=== PATIENT | male | born 1990 | race Caucasian/White ===

== ENCOUNTER 2017-09-30 17:23 | Inpatient (IN) | payer OTHER ==
[~2017-09-30] VITALS: Ht 185.4 cm; Wt 86.8 kg
[~2017-09-30 17:23] MED LIST: AUGMENTIN 875-1 EACH PO
[2017-09-30 17:30] VITALS: BP 127/74
[2017-09-30 18:14] LABS: ABSOLUTE BASOPHIL COUNT 0 /CUMM (0.0-0.2); ABSOLUTE EOSINOPHIL COUNT 0 /CUMM (0.0-0.7); ABSOLUTE LYMPH COUNT 0.8 /CUMM (1.2-3.4); BASOPHIL % 0.3 % (0.0-2.0); EOSINOPHIL % 0.2 % (0-5); GRANULOCYTE % 76.3 % (42.2-75.2); HEMATOCRIT 42.6 % (42-52); MEAN CORPUSCULAR HGB 32.7 PG (27.0-31.0); MEAN CORPUSCULAR HGB CONC 35.1 G/DL (33.0-37.0); MEAN CORPUSCULAR VOLUME 92.9 FL (80.0-94.0); MEAN PLATELET VOLUME 6.5 FL (7.4-10.4); PLATELET COUNT 120 /CUMM (130-400); RBC DISTRIBUTION WIDTH 13.5 % (11.5-14.5); RED BLOOD CELL CT 4.59 /CUMM (4.70-6.10); WHITE BLOOD CELL COUNT 7.8 /CUMM (4.8-10.8)
--- NOTE | 2017-09-30 18:50 | ED GENERAL ADULT ---
See Addendum History of Present Illness General Chief Complaint: Seizure Stated Complaint: BIBA FOR SEIZURE Source: patient, family Exam Limitations: no limitations Allergies Coded Allergies: NO KNOWN ALLERGIES (07/18/13) Reconcile Medications No Known Home Medications Triage Note: BIBA FROM HOME S/P SEIZURE-LIKE ACITVITY PER MOM. EMS STATES MOM HEARD LARGE SOUND IN THE KITCHEN AND SHE FOUND PATIENT LAYING ON GROUND UNRESPONSIVE AND SHAKING AND CALLED 911. PATIENT ARRIVES TO ER ALERT, ORIENTED, DENIES RECOLLECTION OF EVENT. PATIENT HAS WOUND TO RIGHT LIP AND SMALL ABRASION TO RIGHT SABIANISM. NO OTHER INJURIES NOTED. PATIENT ADMITS TO DRINKING 3 GLASSES OF WHISKEY EVERY NIGHT, LAST DRINK LAST PM, NO HX OF ALCOHOL WITHDRAWL SEIZURES. DENIES MEDICAL HX OR ILLICIT DRUG USE. DENIES PAIN AT THIS TIME. PLACED ON ASSEMBLY WORKER, VITALS OBTAINED. AWAITING PROVIDER EVAL. Triage Nurses Notes Reviewed? yes Onset: Abrupt Duration: minute(s): Timing: single episode today HPI: 27-year-old male with a history of EtOH abuse presenting s/p seizure just [employer]AM [employer]BER. Patient's mother reports that he was upstairs when she heard a loud bang, went upstairs to find him with GTC movements. Lasted ~2 mins before self resolving. + Head strike. No h/o seizures or ETOH withdrawal seizures. Reports being in his USOH, no recent fevers or illness. On average drinks 3 glasses of whiskey per night, with last drink 2 nights ago. Denies fevers, headache, visual changes, nausea, vomiting, or head trauma. (Amisha Singh) Vital Signs & Intake/Output Vital Signs & Intake/Output Vital Signs Date Time Temp Pulse Resp B/P B/P Pulse O2 O2 Flow FiO2 Mean Ox Delivery Rate 10/01 0000 98.5 71 18 155/91 09/306 98.5 71 18 155/91 98 09/30 2158 100.0 74 20 144/99 09/30 2158 100.0 74 20 144/99 96 Room Air 09/30 2028 101.4 09/30 1930 100.0 87 22 146/85 09/30 1924 100.0 87 22 146/85 96 Room Air 09/30 1730 99.8 80 18 127/74 09/30 1726 99.8 80 18 12774 94 Room Air ED Intake and Output 10/01 0000 09/30 1200 Intake Total 700 Output Total Balance 700 Intake, IV 500 Intake, Oral 200 Patient 210 lb Weight Weight Reported by Patient Measurement Method (Susie STEVENS,Sang Mata) Past History Travel History Traveled to [place] past 21 day No Medical History Any Pertinent Medical History? see below for history Neurological: NONE EENT: NONE Cardiovascular: NONE Respiratory: NONE Gastrointestinal: NONE Hepatic: NONE Renal: NONE Musculoskeletal: NONE Psychiatric: alcohol dependence Endocrine: NONE Blood Disorders: NONE Tetanus Vaccine: 11/02/16 Surgical History Surgical History: non-contributory Psychosocial History What is your primary language German Tobacco Use: Current Daily Use Daily Tobacco Use Amount/Type: => 5 Cigarettes daily ETOH Use: heavy use Illicit Drug Use: denies illicit drug use Family History Hx Contributory? No (Amisha Singh) Review of Systems Review of Systems Constitutional: Reports: no symptoms. EENTM: Reports: no symptoms. Respiratory: Reports: no symptoms. Cardiovascular: Reports: no symptoms. GI: Reports: no symptoms. Genitourinary: Reports: no symptoms. Musculoskeletal: Reports: no symptoms. Skin: Reports: no symptoms. Neurological/Psychological: Reports: see HPI. Hematologic/Endocrine: Reports: no symptoms. Immunologic/Allergic: Reports: no symptoms. (Amisha Singh) Physical Exam Physical Exam General Appearance: well developed/nourished, no apparent distress, alert, awake , comfortable Head: normal appearance, small abrasion Eyes: Bilateral: normal appearance, PERRL, EOMI. Ears, Nose, Throat: normal ENT inspection Neck: normal inspection, full range of motion, no midline tenderness Respiratory: normal breath sounds, chest non-tender, lungs clear Cardiovascular: regular rate/rhythm Gastrointestinal: soft, non-tender Back: normal inspection, normal range of motion, no vertebral tenderness Extremities: normal inspection, normal range of motion Neurologic/Psych: no motor/sensory deficits, awake, alert, oriented x 3, normal gait, normal mood/affect, value engineer II-XII nml as tested, cerebellar function intact, positive tremors, no meningeal signs Reflexes: 2+: bicep (R), bicep (L), tricep (L), tricep (L), knee (R), knee (L), ankle (R), ankle (L). Skin: intact, normal color, warm/dry Core Measures ACS in differential dx? No CVA/TIA Diagnosis: No Sepsis Present: No Sepsis Focused Exam Completed? No (Amisha Singh) Progress Differential Diagnoses I considered the following diagnoses in my evaluation of the patient: [Infection versus metabolic derangement versus toxin induced versus EtOH withdrawal] Initial ED EKG: rhythm (sinus), PVC's, T wave inversions (Amisha Singh) Plan of Care: Orders Procedure Date/time Status Clear Liquid Diet 10/01 D Active Nothing by Mouth 10/01 B Active TROPONIN LEVEL 10/01 0600 Active MAGNESIUM 10/01 0600 Active CBC WITHOUT DIFFERENTIAL 10/01 06 Active BASIC ELECTROLYTES PLUS BUN&CR 10/01 06 Active EKG 10/01 0600 Active LACTIC ACID 10/01 0101 Active Seizure Precautions 09/30 2302 Active Weight 09/30 223 Active Vital Signs 09/30 2234 Active Teach/Educate 09/30 2234 Active Pain Treatment and Response 09/30 2234 Active Nutritional Intake, Monitor 09/30 2234 Active Isolation 09/30 2234 Active Intake & Output 09/30 2234 Active Patient Care Conference 09/30 2234 Active Activity/Ambulation 09/30 223 Active LOWER RESPIRATORY CULTURE 09/30 221 Active BLOOD CULTURE 09/30 221 Active LACTIC ACID 09/30 220 Complete Add-on Test (ER Only) 10/01 2115 Active Pathway - chart 09/30 2114 Active House Staff 09/30 2114 Active Code Status 09/30 2114 Active Add-on Test (ER Only) 09/30 2108 Active Add-on Test (ER Only) 10/01 2103 Active Patient Data 09/30 2058 Active Saline Lock 09/30 2057 Active Misc Message 09/30 2057 Active ED Holding Orders 09/30 2057 Active Admit to inpatient 09/30 2057 Active Vital Signs 09/30 2057 Active Code Status 09/30 2057 Complete CIWA 09/30 1914 Active URINALYSIS 09/30 1817 Complete THYROID STIMULATING HORMONE 09/30 1750 Complete TROPONIN LEVEL 09/30 1750 Complete LACTIC ACID 09/30 1750 Complete FOLIC ACID 09/30 1750 Complete VITAMIN B12 09/30 1750 Complete EKG 09/30 1750 Active URINE DRUG SCREEN FOR ER ONLY 09/30 1739 Complete MAGNESIUM 09/30 1739 Complete LIPASE 09/30 1739 Complete ETHANOL 09/30 1739 Complete COMPREHENSIVE METABOLIC PANEL 09/30 1739 Complete CBC WITHOUT DIFFERENTIAL 09/30 173 Complete Intake & Output 09/30 1731 Active VTE Mechanical Prophylaxis 09/30 UNK Active Current Medications Sig/Ashlie Start time Last Medication Dose Stop Time Status Admin Enoxaparin Sodium 40 MG DAILY 10/01 0900 AC (Lovenox) Folic Acid 1 MG DAILY 10/01 0900 AC (Folic Acid) Multivitamins 1 TAB DAILY 10/01 09 AC (Theragran Vitamins) Thiamine HCl 50 MG DAILY 10/01 09 AC (Vitamin B1) Omeprazole 40 MG DAILY AC 10/01 0700 AC (Prilosec) Lorazepam 2 MG Q6 09/30 2359 AC 09/30 (Ativan) 2326 Cyanocobalamin/ 1 BAG ONCE ONE 09/30 2114 AC Thiamine/Pyridoxine 10/01 0514 (Vitamin in I.V.) Sodium Chloride 1,000 ML (Normal Saline 0.9%) Lorazepam 0 Q1P PRN 09/30 2114 AC (Ativan) Magnesium Sulfate 2 GM ONCE ONE 09/30 2100 AC 09/30 (Mag Sulfate in D5) 10/01 58 2328 Dextrose/Water 100 ML (D5W) Lidocaine 20 ML ONE ONE 09/30 2044 CAN (Lidocaine 2%) 09/30 2045 Lidocaine 20 ML ONCE ONE 09/30 2044 CAN (Lidocaine 1%) 09/30 2045 Laboratory Tests 09/30/17 2205: Lactic Acid 1.0 09/30/17 1929: Urine Opiates Screen < 100, Methadone Screen < 40, Barbiturate Screen < 60, Ur Phencyclidine Scrn < 6.00, Amphetamines Screen < 100, U Benzodiazepines Scrn < 85, Urine Cocaine Screen < 50, Urine Cannabis Screen < 5.00, Urinalysis LIGHT H , Urine Color YEL, Urine Clarity HAZY H, Urine pH 7.0, Ur Specific [place] 1.025, Urine Protein >=300 H, Urine Ketones 40 H, Urine Nitrite NEG, Urine Bilirubin NEG@ICTO, Urine Urobilinogen 4.0 H, Ur Leukocyte Esterase NEG, Ur Microscopic SEDIMENT EXAMINED, Urine RBC 1-3, Ur Epithelial Cells FEW, Urine Hemoglobin SMALL H, Urine Glucose NEG 09/30/17 1750: Anion Gap 24 H, Estimated GFR > 60, BUN/Creatinine Ratio 6.7 L, Glucose 149 H , Lactic Acid 9.5 H, Calcium 9.5, Magnesium 1.0 L, Total Bilirubin 1.1, AST 242 H, ALT 220 H, Alkaline Phosphatase 117, Troponin I < 0.01, Total Protein 7.2, Albumin 4.3, Globulin 2.9, Albumin/Globulin Ratio 1.5, Lipase 113, Vitamin B12 806, Folate 4.4, TSH 1.870, CBC w Diff NO MAN DIFF REQ, RBC 4.59 L, MCV 92.9, MCH 32.7 H, MCHC 35.1, RDW 13.5, MPV 6.5 L, Gran % 76.3 H, Lymphocytes % 10.3 L, Monocytes % 12.9 H, Eosinophils % 0.2, Basophils % 0.3, Absolute Granulocytes 6.0, Absolute Lymphocytes 0.8 L, Absolute Monocytes 1.0 H, Absolute Eosinophils 0, Absolute Basophils 0, Serum Alcohol 25.0 Microbiology 09/30 2214 LOWER RESP: Respiratory Culture - ORD 09/30 2214 LOWER RESP: Gram Stain - ORD 09/30 2214 BLOOD: Blood Culture - COLB 09/30 2214 BLOOD: Blood Culture - COLB Initial CIWA 16 and given 1 mg of Ativan. Repeat CIWA 9, given an additional milligram of Ativan. CT head unremarkable. Labs remarkable for hypomagnesemia and hypokalemia, both were repleted. EKG shows sinus rhythm with new T wave inversions, trop neg. Patient noted to be febrile to 101.5 rectally. No clear source for fever. Chest x-ray unremarkable. Urine not concerning for infection. No signs of skin infection on exam. We'll concerns for meningitis as patient has no headache and no meningeal signs on exam, therefore LP was deferred at this time. Will admit for inpatient ETOH detox withdrawal. Pt should have serial neuro exams with LP for any symptoms concerning for meningitis. (Amisha Singh) (Susie STEVENS,Sang Mata) Departure Departure Disposition: STILL A PATIENT Condition: Stable Clinical Impression Primary Impression: Seizure Secondary Impressions: Alcohol abuse Referrals: Steffen Amaro DO (PCP/Family) Departure Forms: Customer Survey General Discharge Information Prescriptions: Current Visit Scripts No Known Home Medications Admission Note Spoke With: MD,Sitalakshmi Documentation of Exam: Documentation of any treatments & extenuating circumstances including Concerns Regarding Discharge (functional status, medication knowledge or non-compliance, living conditions, etc.) that warrant an admission rather than observation: [IV fluids, benzodiazepine regimen, CIWA monitoring, hemodynamic monitoring, serial neurologic exams] (Amisha Singh) PA/RESEARCH LEADER Co-Sign Statement Statement: ED Attending supervision documentation- [x] I saw and evaluated the patient. I have also reviewed all the pertinent lab results and diagnostic results. I agree with the findings and the plan of care as documented in the PA's/RESEARCH LEADER's documentation. Patient presents for evaluation of a seizure, new onset, after cessation of alcohol yesterday. Physical examination reveals an alert and conversant patient in no apparent distress. No seizure activity at present. [] I have reviewed the ED Record and agree with the PA's/RESEARCH LEADER's documentation. [] Additions or exceptions (if any) to the PAs/RESEARCH LEADER's note and plan are summarized below: [] (Susie STEVENS,Sang Mata) PA/RESEARCH LEADER Co-Sign Statement Statement: ED Attending supervision documentation- [x] I saw and evaluated the patient. I have also reviewed all the pertinent lab results and diagnostic results. I agree with the findings and the plan of care as documented in the PA's/RESEARCH LEADER's documentation. 09/30/17, 20:52... pt is well appearing, no headache or meningeal signs, given his seizure in context of etoh withdrawal, and elevated ciwa scores, pt merits parenteral benzo detox. [] I have reviewed the ED Record and agree with the PA's/RESEARCH LEADER's documentation. [] Additions or exceptions (if any) to the PAs/RESEARCH LEADER's note and plan are summarized below: [] (Aleksey STEVENS,Nicholas Lee) Critical Care Note Critical Care Note Critical Care Time: non-applicable (Amisha Singh)
[2017-09-30 19:30] VITALS: BP 146/85
--- NOTE | 2017-09-30 19:35 | CT SCAN REPORT ---
EXAMINATION: CT HEAD WITHOUT CONTRAST CLINICAL INFORMATION: Seizure. COMPARISON: None TECHNIQUE: Contiguous axial imaging was performed from the skull base to vertex without intravenous administration of contrast. DLP: 612 mGy-cm FINDINGS: There is no evidence of acute intracranial hemorrhage or territorial infarction. No abnormal mass effect or midline shift is seen. Lema to white matter differentiation is well preserved. No extra-axial fluid collections are identified. The ventricles are normal in size. There is no abnormal attenuation within the brain parenchyma. The osseous structures and soft tissues are normal. The mastoid air cells are well-aerated. There is mild to moderate fluid opacification of the bilateral ethmoid air cells. IMPRESSION: 1. No acute intracranial pathology. 2. Mild to moderate bilateral ethmoid sinus disease.
--- NOTE | 2017-09-30 21:00 | RADIOLOGY REPORT ---
EXAMINATION: XR CHEST CLINICAL INFORMATION: Evaluate for infection COMPARISON: None TECHNIQUE: 2 views of the chest were obtained. FINDINGS: No significant abnormality is noted involving the heart, lungs, mediastinum, bony thorax or soft tissues. IMPRESSION: Unremarkable examination.
--- NOTE | 2017-09-30 21:05 | History & Physical ---
Mami STEVENS,Simone 09/30/17 2103: General Information and HPI MD Statement: I have seen and personally examined MERLINE WALLER and documented this H&P. The patient is a 27 year old M who presented with a patient stated chief complaint of [alcohol withdrawal seizure]. Source of Information: patient, family Exam Limitations: no limitations History of Present Illness: Patient is a 27-year-old male with a PMH significant for alcohol use disorder who was brought in to [facility] ED by ambulance after suffering a witnessed seizure. Patient reports drinking approximately 1 pint of whiskey daily for the past several years with his last drink being on 09/28/17, 2 days prior to presentation. He had a brief period of 8 days of sobriety in May of 2017 and did not experience tremors, anxiety, nausea or vomiting but did experienced night sweats during this time. Patient reports nausea and vomiting the the evening prior to presenation as well as fever, chills, and tremulousness. These symptoms persisted through the night and had a syncopal episode while walking in his home and hit his head. His mother was visiting and heard the patient fall, she stated that she found him unconscious on the floor and reported his hands were shaking but this was similar to the tremulousnes he was experiencing prior to the syncope and did not describe any tonic clonic movement, lip smacking, bowel or bladder incontinence. The patient had post- ictal confusion until arrival to the ER. Review of systems is positive for chest discomfort which the patient describes as a burning pain radiating from the substernal chest. The patient denied any palpitations, lightheadedness, dizziness, weakness, numbness, parasthesias, audio or visual hallucinations. Patient reports in the past being worked up for possible depression however he is not on any medication, he currently denies any suicidal or homicidal ideation Patient expressed a desire to not inform his aunts about the diagnosis and his alcohol use, but his mother can be informed. Allergies/Medications Allergies: Coded Allergies: NO KNOWN ALLERGIES (07/18/13) Home Med list No Known Home Medications Past History Travel History Traveled to [place] past 21 day No Medical History Neurological: NONE EENT: NONE Cardiovascular: NONE Respiratory: NONE Gastrointestinal: NONE Hepatic: NONE Renal: NONE Musculoskeletal: NONE Psychiatric: alcohol dependence Endocrine: NONE Blood Disorders: NONE Tetanus Vaccine: 11/02/16 Surgical History Surgical History: non-contributory Past Family/Social History Family History Relations & Conditions if any FATHER FH myocardial infarction male first degree age known, Onset: 50-60. Psychosocial History Where do you live? Home Who Do You Live With? self Services at Home: None Primary Language: Qatari Smoking Status: Current Everyday Smoker ETOH Use: heavy use Illicit Drug Use: denies illicit drug use Functional Ability ADLs Independent: dressing, eating, toileting, bathing. Ambulation: independent IADLs Independent: shopping, housework, finances, food prep, telephone, transportation , medication admin. Review of Systems Review of Systems Constitutional: Reports: chills, fever. Denies: malaise, weakness. EENTM: Denies: blurred vision, double vision, visual changes. Cardiovascular: Denies: chest pain, palpitations. Respiratory: Reports: cough (chronic). Denies: orthopnea, short of breath. GI: Reports: abdominal pain, nausea, vomiting. Denies: diarrhea, melena, bloody stool, changes in stool. Genitourinary: Denies: discharge, dysuria, frequency, hematuria. Musculoskeletal: Reports: joint pain (L shoulder). Skin: Reports: no symptoms. Neurological/Psychological: Reports: confusion (post ictal, now resolved). Denies: anxiety, depressed, headache. Exam & Diagnostic Data Last 24 Hrs of Vital Signs/I&O Vital Signs Date Time Temp Pulse Resp B/P B/P Pulse O2 O2 Flow FiO2 Mean Ox Delivery Rate 09/30 2158 100.0 74 20 144/99 09/30 2158 100.0 74 20 144/99 96 Room Air 09/30 2028 101.4 09/30 1930 100.0 87 22 146/85 09/30 1924 100.0 87 22 146/85 96 Room Air 09/30 1730 99.8 80 18 127/74 09/30 1726 99.8 80 18 127/74 94 Room Air Physical Exam General Appearance Alert, Oriented X3, Cooperative, No Acute Distress Skin Temp/Moisture Exam: Warm/Dry Sepsis Skin Exam (color): Normal for Ethnicity HEENT PERRLA, EOMI, Mucous Membr. moist/pink, swlling of the R side of lower lip , small abrasion on the R samaritan Cardiovascular Regular Rate, Normal S1, Normal S2 Lungs Clear to Auscultation, Normal Air Movement Abdomen Normal Bowel Sounds, Soft, No Tenderness Extremities No Clubbing, No Cyanosis, No Edema, L shoulder pain with pronation, no limitation for active or passive range of motion, ecchymosis on L posterior shoulder Vascular Normal Pulses, Pulses Symmetrical Sepsis Peripheral Pulse Location: Dorsalis Pedis Sepsis Peripheral Pulse Exam: Normal Sepsis Cap Refill Exam: <2 Sec Body Front and Back (Adult) 1) abrasion 2) lip swelling Last 24 Hrs of Labs/Micky: Laboratory Tests 09/30/17 1929: Urine Opiates Screen < 100, Methadone Screen < 40, Barbiturate Screen < 60, Ur Phencyclidine Scrn < 6.00, Amphetamines Screen < 100, U Benzodiazepines Scrn < 85, Urine Cocaine Screen < 50, Urine Cannabis Screen < 5.00, Urinalysis LIGHT H , Urine Color YEL, Urine Clarity HAZY H, Urine pH 7.0, Ur Specific Hornick 1.025, Urine Protein >=300 H, Urine Ketones 40 H, Urine Nitrite NEG, Urine Bilirubin NEG@ICTO, Urine Urobilinogen 4.0 H, Ur Leukocyte Esterase NEG, Ur Microscopic SEDIMENT EXAMINED, Urine RBC 1-3, Ur Epithelial Cells FEW, Urine Hemoglobin SMALL H, Urine Glucose NEG 09/30/17 1750: Anion Gap 24 H, Estimated GFR > 60, BUN/Creatinine Ratio 6.7 L, Glucose 149 H , Lactic Acid 9.5 H, Calcium 9.5, Magnesium 1.0 L, Total Bilirubin 1.1, AST 242 H, ALT 220 H, Alkaline Phosphatase 117, Troponin I < 0.01, Total Protein 7.2, Albumin 4.3, Globulin 2.9, Albumin/Globulin Ratio 1.5, Lipase 113, Vitamin B12 Pending, Folate Pending, TSH Pending, CBC w Diff NO MAN DIFF REQ, RBC 4.59 L, MCV 92.9, MCH 32.7 H, MCHC 35.1, RDW 13.5, MPV 6.5 L, Gran % 76.3 H, Lymphocytes % 10.3 L, Monocytes % 12.9 H, Eosinophils % 0.2, Basophils % 0.3, Absolute Granulocytes 6.0, Absolute Lymphocytes 0.8 L, Absolute Monocytes 1.0 H, Absolute Eosinophils 0, Absolute Basophils 0, Serum Alcohol 25.0 Diagnostic Data EKG Results NSR with PVC, HR 80, QTc 457 T wave inversions in lateral leads CXR Results FINDINGS: No significant abnormality is noted involving the heart, lungs, mediastinum, bony thorax or soft tissues. IMPRESSION: Unremarkable examination. Other Results Head CT There is no evidence of acute intracranial hemorrhage or territorial infarction. No abnormal mass effect or midline shift is seen. Lema to white matter differentiation is well preserved. No extra-axial fluid collections are identified. The ventricles are normal in size. There is no abnormal attenuation within the brain parenchyma. The osseous structures and soft tissues are normal. The mastoid air cells are well-aerated. There is mild to moderate fluid opacification of the bilateral ethmoid air cells. IMPRESSION: 1. No acute intracranial pathology. 2. Mild to moderate bilateral ethmoid sinus disease. Assessment/Plan Assessment: Patient is a 27-year-old male with a PMH significant for alcohol use disorder who was brought in to [facility] ED by ambulance after suffering a witnessed seizure. Patient reports drinking approximately 1 pint of whiskey daily for the past several years with his last drink being on 09/28/17, 2 days prior to presentation. CT has had no acute intracranial pathology and mild to moderate bilateral ethmoid sinus disease. CXR is unremarkable Vital signs on presentation: T 99.8 (T-max 101.4) P 80, RR 18, BP 127/74, pulse ox 94% on room air Labs: WBC 7.8, H/H 15/42.6, platelets 120, sodium 140, potassium 3.4, chloride 94, CO2 24, anion gap 24, BUN 4, creatinine 0.6, glucose 149, lactic acid 9.5 ( trended down to 1.0 with IV fluid hydration), magnesium 1.0, AST 242, ALT 220, troponin <0.01, lipase 113, vitamin B12 806, folate 4.4, TSH 1.870 Problem list #Alcohol withdrawal with seizure #Alcohol use disorder #Possible depression #hypokalemia #hypomagnesemia #Left shoulder pain with pronation Plan -Admit to general medicine floor -[facility] protocol -P.o. Ativan 2 mg every 6 hours -Potassium repleted with p.o. K-dur, Mg repleted with IV Mg monitor electrolytes -Folic acid, thiamine, multivitamin -omeprazole for likely GERD, however will repeat troponin and EKG in a.m. to rule out ACS given new T-wave inversions on EKG -Reassess patient's willingness for psych consult, currently he is willing to consider it but does not want on called -Social work consult -Of note patient only wishes his mother to be informed of his current condition with alcoholism, be sure that no other family members are present in room when discussing plans of care -Patient has left shoulder pain with pronation, small ecchymosis on left posterior shoulder from fall, if pain persists consider imaging Diet: Clear liquid diet for now, advance as tolerated DVT prophylaxis: Lovenox, Alps CODE STATUS: Full code As Ranked By This Provider Problem List: 1. Alcohol abuse 2. Seizure Core Measures/Misc (12/31) Acute Coronary Syndrome ACS Diagnosis: No Congestive Heart Failure Congestive Heart Failure Diagnosis No Cerebrovascular Accident CVA/TIA Diagnosis: No VTE (View Protocol) VTE Risk Factors Acute Medical Illness No Mechanical VTE Prophylaxis d/t N/A MechProphylax Ordered No VTE Pharm Prophylaxis d/t NA PharmProphylax ordered Sepsis (View protocol) Sepsis Present: No If YES complete Sepsis Event Note If YES complete Sepsis Event Note [facility] 2258: Core Measures/Misc (12/31) Sepsis (View protocol) If YES complete Sepsis Event Note If YES complete Sepsis Event Note Resident Review Statement Resident Statement: examined this patient, discussed with international organizer, agreed with international organizer Other Findings: HPI: 27/M without significant PMH, who presented by EMS after he had a witnessed seizure. The patient reports drinking one pint of whiskey daily for long years with exception of one week on May when he tried to his sober. He had never withdrawal from alcohol. He denies any personal or family history of seizure. The patient last drink was on Sunday nights, he reports nausea and vomiting since then. He reports about 15 episodes of nonbloody, fome like vomitus every day. His symptom was associated with epigastric pain that radiates to the substernal as a burning sensation, earlier today he felt fever and chills, soon after his mom found him unconscious on the floor shaking with blood in his mouth. They shaking last for 6-9 minutes and was followed by confusion. The next thing the patient remember was the EMS driving him to the hospital. He denies palpitation, dizziness, weakness, or numbness. Of note: The pt is okay if we update his mother about any changes, does not want the rest of his family to know about his medical status especially his aunts. Vitals: Tmax 101.4, HR 74, 155/91, O2 98% on RA Labs: CBC WNL except Plt of 120. K+ 3.4, Na+ 140, Anioin gap 24, lactic acid 9 improved to 1 with IV fluid, glucose 149, Mg+ 1, AST 242, ALT 220, Negative trops, folate 4.4, normal TSH & lipase. Imaging: Head CT no intracranial pathology with mild to moderate bilateral ethmoid sinus disease. CXR unremarkable. EKG PVC, normal sinus rhythm, new T-wave inversion in V4-V6. Assessment: The patient symptoms most likely secondary to alcohol withdrawal. His Tmax is 101.4, however no leukocytosis and no signs suggestive of of infection. His abdominal pain most likely secondary to gastritis caused by alcohol use. Thrombocytopenia most likely secondary to alcohol use. He had a small bruises over the left shoulder, normal ROM but he reports left shoulder pain with certain positions such as internal rotation, I do not suspect bone fractures, muscle injury is possible. #Alcohol detox * Admit to general medicine floor * CIWA protocol * Ativan per CIWA * Scheduled by mouth Ativan 2 mg every 6 hours. * 1 banana bag followed by oral supplements * Seizure precaution #Nausea and vomiting * Most likely secondary to gastritis caused by alcohol use * PPI * Tigan for nausea #Fever with no leukocytosis and no signs of infection * Monitor after starting Ativan * Panculture * Follow off antibiotics for now #Reports history of depression * Currently denies is SI/HI * Ask for psych evaluation if agrees by the patient, currently he is thinking about it #Mild thrombocytopenia * Most likely related to alcohol use * Repeat CBCs in the morning -Clear liquid diet, advance as tolerated -DVT prophylaxis with Alps and Lovenox -FC Roshan STEVENS, [facility] 10/01/17 0055: Core Measures/Misc (12/31) Sepsis (View protocol) If YES complete Sepsis Event Note If YES complete Sepsis Event Note Attending MD Review Statement Attending Statement Attending MD Statement: examined this patient, discuss w/resident/PA/DIRECTOR MATERNAL CHILD, agreed w/resident/PA/DIRECTOR MATERNAL CHILD, discussed with family, reviewed images, amended to note Attending Assessment/Plan: 27 yo M with h/o depression (not on any meds), alcohol dependence with no previous h/o alcohol withdrawal seizure or DT's, is brought in after a witnessed seizure episode at home. Patient drinks about 1 pint of Whiskey daily. He started drinking in his ' college days' and most recently has been drinking upto 1 pint. He had transiently stopped drinking in May 2017 when he started doing AA sessions. However, he resumed drinking soon after. This time around, his last drink was 2 days ago. His mother is visiting him from [place]. About 24 hours prior, patient developed a 'queasy' feeling to his stomach and had multiple episodes of vomiting (white, foam like material, not coffee ground) associated with epigastric burning sensation. He was also tremulous as per mother. Earlier this afternoon, patient was found on the kitchen floor by mother. He was unresponsive , having shaking of upper extremities, bit his lip but had no fecal or urinary incontinence, followed by post-ictal confusion with entire episode lasting about 7-10 minutes. Patient recollects being brought into hospital by EMS. Patient reports being diagnosed with depression but did not want to take any meds. He is a current everyday smoker, denies IV drug abuse. He reports working 'partially' and wanted us to update his mother with all medical information but not to his aunts. Patient denies SI or HI. Vitals: Tmax 101.4 otherwise stable. Exam: awake, alert, slightly lethargic but responds to qs appropriately, dry mucosa, right lower lip is swollen, PERRL, Neck supple, Chest reduced air entry at bases, Heart S1S2 regular, Abd soft, NT, Left shoulder pain with pronation, bruise noted to posterior left shoulder, Neuro nonfocal. Labs: no leukocytosis, Plt 120, K 3.4, AG 24, BUN 4, Creat 0.6, glucose 149, lactic acid 9.5, Mag 1.0, T. Bili 1.1, AST 242, ALT 220, trop negative, lipase 113, TSH 1.870. UA proteinuria, positive ketones, urobilinogen+. Urine tox negative. Alcohol 25. Head CT: no intracranial pathology, mild to moderate b/l ethmoid sinus disease. CXR: no pneumonia. EKG: Sinus rhythm, PVC's, TWI in V4-6 and inferior leads. Assessment and plan: 1. Alcohol withdrawal seizure 2. Alcohol dependence 3. Alcoholic gastritis 4. Fever likely related to withdrawal 5. Elevated anion gap related to lactic acidosis 6. Transaminitis and thrombocytopenia 2/2 alcohol use 7. Hypomagnesemia, hypokalemia 8. EKG changes with T-wave inversions and PVC's 9. History of depression - Admit to General medicine - Neurochecks Q4 - Fall and seizure precautions - CIWA protocol - IV ativan per CIWA - PO ativan 2 mg Q6 then taper - Banana bag x 1, maintenance IV fluids- trend lactic acid - Check tylenol levels, HIV and hepatitis panel - Check PT/INR and peripheral smear - Panculture, watch off antibiotics. If persistent fever, consider antibiotic coverage with Unasyn for possible aspiration. - Clear liquid diet, advance as tolerated - Add IV protonix - Left shoulder pain with pronation but otherwise normal active and passive ROM. If persistent pain, consider left shoulder imaging. - Psych consult for depression patient will think about it, he does not wish to be treated at this point - Social work consult - Replete electrolytes to keep Mag > 2.0 and K > 4.0 - Serial EKG and troponin to rule out ACS - Smoking cessation counseling DVT ppx Alps. Full code.
[2017-09-30 21:59] VITALS: BP 144/99
--- NOTE | 2017-09-30 22:23 | Admission Certification ---
Admission Certification Certification Statement - As attending physician, I certify that at the time of - admission, based on clinical presentation, severity of - symptoms, need for further diagnostic testing and - therapeutic interventions, and risk of adverse outcomes - without in-hospital treatment, in my clinical assessment, - this patient requires an acute hospital stay for a minimum - of two nights or longer. I have also considered psychsocial - factors such as support system, advanced age, financial - issues, cognitive issues, and failed out-patient treatments, - past re-admission history, safety of patient, and lack of - compliance as applicable. Specific rationale supporting this admission is: Alcohol withdrawal seizure.
[2017-09-30 22:36] VITALS: BP 155/91
[2017-10-01] VITALS (8 sets, daily range): BP systolic 138–176; BP diastolic 91–104
--- NOTE | 2017-10-01 08:10 | PN- Housestaff ---
Sri Dos Santos 10/01/17 0809: Subjective Follow-up For: alcohol use disorder ? seizure Subjective: Seen and examined patient. offers no complaints. Denies anxiety, chest pain, shortness of breath. Review of Systems Constitutional: Denies: chills, diaphoresis, fever, malaise, weakness, unexplained weight loss. Cardiovascular: Denies: chest pain, edema, orthopena, palpitations, peripheral edema, syncope. Respiratory: Denies: cough, hemoptysis, orthopnea, short of breath, sputum production, stridor, wheezing. Objective Last 24 Hrs of Vital Signs/I&O Vital Signs Date Time Temp Pulse Resp B/P B/P Pulse O2 O2 Flow FiO2 Mean Ox Delivery Rate 10/01 0800 Room Air 10/01 0620 99.7 80 18 156/102 100 Room Air 10/01 0600 98.5 71 18 157/102 10/01 0400 98.8 77 18 176/100 10/01 0313 77 176/100 10/01 0131 98.8 73 20 176/100 97 Room Air 10/01 0000 98.5 71 18 155/91 09/30 2236 98.5 71 18 155/91 98 09/30 2159 100.0 74 20 144/99 09/30 2159 100.0 74 20 144/99 96 Room Air 09/30 2029 101.4 09/30 1930 100.0 87 22 146/85 09/30 1924 100.0 87 22 146/85 96 Room Air 09/30 1730 99.8 80 18 127/74 09/30 1726 99.8 80 18 127/74 94 Room Air Intake & Output 10/01 1600 10/01 0800 10/01 0000 Intake Total 855 1080 700 Output Total 750 Balance 855 330 700 Intake, IV 375 600 500 Intake, Oral 480 480 200 Number 0 Bowel Movements Output, Urine 750 Patient 210 lb Weight Weight Reported by Patient Measurement Method Physical Exam General Appearance: Alert, Oriented X3, Cooperative, No Acute Distress Cardiovascular: Regular Rate, Normal S1, Normal S2 Lungs: Clear to Auscultation, Normal Air Movement Extremities: No Edema Current Medications: Current Medications Sig/Ashlie Start time Last Medication Dose Route Stop Time Status Admin Clonidine 0.1 MG ONCE ONE 10/01 0145 DC 10/01 PO 10/01 0146 0313 Cyanocobalamin/ 1 BAG ONCE ONE 09/30 2115 DC 10/01 Thiamine/Pyridoxine IV 10/01 0514 0120 Sodium Chloride 1,000 ML Enoxaparin Sodium 40 MG DAILY 10/01 0900 10/01 SC 0911 Folic Acid 1 MG DAILY 10/01 0900 AC 10/01 PO 0911 Lidocaine 20 ML ONE ONE 09/30 2045 CAN ID 09/30 2046 Lidocaine 20 ML ONCE ONE 09/30 204 CAN ID 09/30 2046 Lidocaine 0 .STK-MED ONE 09/30 204 DC .ROUTE Lorazepam 2 MG Q6 09/30 2359 AC 10/01 PO 1113 Lorazepam 0 .STK-MED ONE 09/30 2137 DC .ROUTE Lorazepam 0 Q1P PRN 09/30 2114 IV Lorazepam 1 MG ONCE ONE 09/30 204 DC 09/30 IV 09/30 204 2143 Lorazepam 0 .STK-MED ONE 09/30 1757 DC .ROUTE Lorazepam 1 MG ONCE ONE 09/30 1745 DC 09/30 IV 09/30 1746 1803 Magnesium Oxide 400 MG ONCE ONE 09/30 2030 DC 09/30 PO 09/30 203 2206 Magnesium Sulfate 2 GM ONCE ONE 09/30 2100 DC 09/30 Dextrose/Water 100 ML IV 10/01 0059 2328 Multivitamins 1 TAB DAILY 10/01 0900 10/01 PO 0911 Omeprazole 40 MG DAILY AC 10/01 0700 AC 10/01 PO 0534 Potassium Chloride 40 MEQ BID 10/01 0923 AC 10/01 PO 1114 Potassium Chloride 40 MEQ ONCE ONE 10/01 0100 DC 10/01 PO 10/01 0101 0120 Potassium Chloride 0 .STK-MED ONE 09/30 2034 DC PO Potassium Chloride 60 MEQ ONCE ONE 09/30 2030 DC 09/30 PO 09/30 203 2207 Sodium Chloride 1,000 ML BOLUS ONE 09/30 2215 DC 09/30 IV 09/30 2314 2226 Sodium Chloride 1,000 ML ONCE ONE 09/30 1745 DC 09/30 IV 09/30 1746 1803 Thiamine HCl 50 MG DAILY 10/01 0900 AC 10/01 PO 0911 Last 24 Hrs of Lab/Micky Results Last 24 Hrs of Labs/Mics: Laboratory Tests 10/01/17 0650: Anion Gap 13, Estimated GFR > 60, BUN/Creatinine Ratio 8.0, Magnesium 1.5 L, Total Bilirubin 1.4 H, Direct Bilirubin 0.5 H, AST 139 H, ALT 167 H, Alkaline Phosphatase 91, Troponin I < 0.01, Total Protein 6.5, Albumin 3.7, CBC w Diff NO MAN DIFF REQ, RBC 4.39 L, MCV 92.8, MCH 32.8 H, MCHC 35.3, RDW 13.6, MPV 7.2 L, Gran % 71.5, Lymphocytes % 10.8 L, Monocytes % 16.2 H, Eosinophils % 0.6, Basophils % 0.9, Absolute Granulocytes 4.9, Absolute Lymphocytes 0.7 L, Absolute Monocytes 1.1 H, Absolute Eosinophils 0, Absolute Basophils 0.1, Hepatitis A IgM Ab NONREACTIVE, Hep Bs Antigen NONREACTIVE, Hep B Core IgM Ab Conf NONREACTIVE, Hepatitis C Antibody NONREACTIVE 10/01/17 0100: Lactic Acid 0.8 09/30/175: Lactic Acid 1.0 09/30/17 1929: Urine Opiates Screen < 100, Methadone Screen < 40, Barbiturate Screen < 60, Ur Phencyclidine Scrn < 6.00, Amphetamines Screen < 100, U Benzodiazepines Scrn < 85, Urine Cocaine Screen < 50, Urine Cannabis Screen < 5.00, Urinalysis LIGHT H , Urine Color YEL, Urine Clarity HAZY H, Urine pH 7.0, Ur Specific [place] 1.025, Urine Protein >=300 H, Urine Ketones 40 H, Urine Nitrite NEG, Urine Bilirubin NEG@ICTO, Urine Urobilinogen 4.0 H, Ur Leukocyte Esterase NEG, Ur Microscopic SEDIMENT EXAMINED, Urine RBC 1-3, Ur Epithelial Cells FEW, Urine Hemoglobin SMALL H, Urine Glucose NEG 09/30/17 1750: Anion Gap 24 H, Estimated GFR > 60, BUN/Creatinine Ratio 6.7 L, Glucose 149 H , Lactic Acid 9.5 H, Calcium 9.5, Magnesium 1.0 L, Total Bilirubin 1.1, AST 242 H, ALT 220 H, Alkaline Phosphatase 117, Troponin I < 0.01, Total Protein 7.2, Albumin 4.3, Globulin 2.9, Albumin/Globulin Ratio 1.5, Lipase 113, Vitamin B12 806, Folate 4.4, TSH 1.870, CBC w Diff NO MAN DIFF REQ, RBC 4.59 L, MCV 92.9, MCH 32.7 H, MCHC 35.1, RDW 13.5, MPV 6.5 L, Gran % 76.3 H, Lymphocytes % 10.3 L, Monocytes % 12.9 H, Eosinophils % 0.2, Basophils % 0.3, Absolute Granulocytes 6.0, Absolute Lymphocytes 0.8 L, Absolute Monocytes 1.0 H, Absolute Eosinophils 0, Absolute Basophils 0, Acetaminophen < 10.0 L, Serum Alcohol 25.0 Microbiology 10/01 0116 BLOOD: Blood Culture - RECD 10/01 010 BLOOD: Blood Culture - RECD 09/30 2214 LOWER RESP: Respiratory Culture - CAN Cancelled: SPECIMEN NOT RECEIVED IN LABORATORY 09/30 2214 LOWER RESP: Gram Stain - CAN Cancelled: SPECIMEN NOT RECEIVED IN LABORATORY Assessment/Plan Assessment: 27 year old gentleman with pmh h/o depression (not on any meds), alcohol dependence with no previous h/o alcohol withdrawal seizure or DT's, is brought in after a witnessed seizure episode at home. Imaging: Head CT no intracranial pathology with mild to moderate bilateral ethmoid sinus disease. CXR unremarkable. EKG PVC, normal sinus rhythm, new T-wave inversion in V4-V6. Assessment/plan #Alcohol detox * continue on general medicine floor * CIWA protocol, 5-6 overnight * Ativan per CIWA * Scheduled by mouth Ativan 2 mg every 6 hours will taper to 1.5mg TID * 1 banana bag followed by oral supplements * Seizure precautions * AGMA 2/2 to lactic acidosis in the setting of vomitting/starvation ketosis * social work consulted #Hypertension * elevated BP, last BP 120/100 * if BP remains persistantly elevated consider Clonidine 0.1mg BID with holding parameters #Nausea and vomiting * improved * Most likely secondary to gastritis caused by alcohol use * PPI * Tigan PRN for nausea #Mild thrombocytopenia * Most likely related to alcohol use #Transaminitis * trended down today * will need oupatient follow up * review of [place] showed Lab done 10/01 showed hepatitis panel was nonreactive and LFTS AST 242 ALT 220 -advanced to regular diet -DVT prophylaxis with Alps and Lovenox -FC Problem List: 1. Alcohol abuse 2. Seizure Pain Ratin Pain Location: na Pain Goal: Pain 4 or less Pain Plan: current regimen Tomorrow's Labs & Rationales: none required Aron Bond MD 10/01/17 1152: Attending MD Review Statement Attending Statement Attending MD Statement: examined this patient, discuss w/resident/PA/ADMINISTRATIVE PERSONAL ASSISTANT, agreed w/resident/PA/ADMINISTRATIVE PERSONAL ASSISTANT, reviewed EMR data (avail), discussed with nursing, discussed with case mgmt, amended to note Attending Assessment/Plan: The patient was seen and discussed with house staff, nursing and case management. This is this patient's first admission for alcohol detox. The patient described passing out at home (doubt any true seizure). He had general physical with his PCP Dr. Foss 07/01 and was told then that his LFT's were abnormal. Will review OP chart. He is agreeable to consider options for alcohol treatment program. Abnormal LFT's most likely related to EtOH induced hepatitis. Continue Ativan with taper.
[2017-10-01 08:22] LABS: ABSOLUTE EOSINOPHIL COUNT 0 /CUMM (0.0-0.7); ABSOLUTE MONOCYTE COUNT 1.1 /CUMM (0.10-0.60); MEAN CORPUSCULAR HGB 32.8 PG (27.0-31.0); MEAN CORPUSCULAR HGB CONC 35.3 G/DL (33.0-37.0); RED BLOOD CELL CT 4.39 /CUMM (4.70-6.10)
[2017-10-01 08:27] LABS: ABSOLUTE BASOPHIL COUNT 0.1 /CUMM (0.0-0.2); ABSOLUTE GRANULOCYTE CT 4.9 /CUMM (1.4-6.5); ABSOLUTE LYMPH COUNT 0.7 /CUMM (1.2-3.4); BASOPHIL % 0.9 % (0.0-2.0); EOSINOPHIL % 0.6 % (0-5); GRANULOCYTE % 71.5 % (42.2-75.2); HEMATOCRIT 40.7 % (42-52); MEAN CORPUSCULAR VOLUME 92.8 FL (80.0-94.0); MEAN PLATELET VOLUME 7.2 FL (7.4-10.4); RBC DISTRIBUTION WIDTH 13.6 % (11.5-14.5); WHITE BLOOD CELL COUNT 6.9 /CUMM (4.8-10.8)
[2017-10-01 08:56] LABS: PLATELET COUNT 91 /CUMM (130-400)
[2017-10-01 20:49] LABS: PT 13.4 SEC (9.4-12.5)
[2017-10-02] VITALS (8 sets, daily range): BP systolic 132–150; BP diastolic 74–110
--- NOTE | 2017-10-02 06:02 | PN- Housestaff ---
Tanya Laird 10/02/17 0600: Subjective Follow-up For: Alcohol detox Complaints: no complaints Subjective: Mr Nuñez was comfortable this morning. He didnt have any new concerns. No chest pain, shortness of breath or palpitations. He stated that he didnt have tremors, or confusion. Although, while we were rounding in the am, he felt that he was being discharged. Vitals remained stable overnight, and his CIWA scores remained in between 0-3. Review of Systems Constitutional: Reports: see HPI. Objective Last 24 Hrs of Vital Signs/I&O Vital Signs Date Time Temp Pulse Resp B/P B/P Pulse O2 O2 Flow FiO2 Mean Ox Delivery Rate 10/02 0200 99.1 68 20 150/110 10/02 0200 99.1 68 20 150/110 98 Room Air 10/02 0000 99.2 77 20 144/94 10/01 2156 99.2 77 20 144/94 98 10/01 1828 98.8 74 20 146/104 98 10/01 1536 99.4 70 20 138/97 99 10/01 0800 Room Air 10/01 0620 99.7 80 18 156/102 100 Room Air Intake & Output 10/02 0800 10/02 0000 10/01 1600 Intake Total 700 855 Output Total 450 Balance -450 700 855 Intake, IV 375 Intake, Oral 700 480 Output, Urine 450 Physical Exam General Appearance: No Acute Distress Other Physical Findings: General Exam: AAOx3, No acute distress, Skin: No rashes, no breakdown;HEENT: PERRLA, EOMI;Neck: Supple, No JVD; No cervical lymphadenopathy;CVS: Reg Rate, Normal S1,S2, No MGR;Resp: Normal air entry, no ronchi/rales;Abdomen: Soft, No tenderness, Normal Bowel Sounds;Neuro: Normal Speech, Strength 5/5 b/l x 4 extremities, Sensation intact, CN III-XII NL, Reflexes 2+;Extremities: No cyanosis, no pedal edema Current Medications: Current Medications Sig/Ashlie Start time Last Medication Dose Route Stop Time Status Admin Clonidine 0.1 MG BID 10/01 1500 DC PO Enoxaparin Sodium 40 MG DAILY 10/01 899 AC 10/01 SC 09 Folic Acid 1 MG DAILY 10/01 899 AC 10/01 PO 09 Lorazepam 1.5 MG TID 10/01 2100 CAN PO Lorazepam 2 MG Q6 09/30 2359 AC 10/02 PO 0531 Lorazepam 0 Q1P PRN 09/305 AC IV Multivitamins 1 TAB DAILY 10/01 09 AC 10/01 PO 09 Omeprazole 40 MG DAILY AC 10/01 0700 AC 10/01 PO 0534 Potassium Chloride 40 MEQ BID 10/01 922 AC 10/01 PO 1951 Thiamine HCl 50 MG DAILY 10/01 899 AC 10/01 PO 09 Last 24 Hrs of Lab/Micky Results Last 24 Hrs of Labs/Mics: Laboratory Tests 10/01/171921: PT 13.4 H, INR 1.23 H 10/01/17 0650: Anion Gap 13, Estimated GFR > 60, BUN/Creatinine Ratio 8.0, Magnesium 1.5 L, Total Bilirubin 1.4 H, Direct Bilirubin 0.5 H, AST 139 H, ALT 167 H, Alkaline Phosphatase 91, Troponin I < 0.01, Total Protein 6.5, Albumin 3.7, CBC w Diff NO MAN DIFF REQ, RBC 4.39 L, MCV 92.8, MCH 32.8 H, MCHC 35.3, RDW 13.6, MPV 7.2 L, Gran % 71.5, Lymphocytes % 10.8 L, Monocytes % 16.2 H, Eosinophils % 0.6, Basophils % 0.9, Absolute Granulocytes 4.9, Absolute Lymphocytes 0.7 L, Absolute Monocytes 1.1 H, Absolute Eosinophils 0, Absolute Basophils 0.1, Hepatitis A IgM Ab NONREACTIVE, Hep Bs Antigen NONREACTIVE, Hep B Core IgM Ab Conf NONREACTIVE, Hepatitis C Antibody NONREACTIVE Assessment/Plan Assessment: Mr Nuñez is a 27 year old gentleman with pmh h/o depression (not on any meds), alcohol dependence with no previous h/o alcohol withdrawal seizure or DT's, is brought in after a witnessed seizure episode at home. Labs at the time of admisison: WBC 7.8-->6.9 Hb 15-->14.4 Platlets 120-->91 ( likely alcohol related ) Na 140 K 3.4-->3.4 Cl 94 BUN 4, Cr 0.5 Mg 1.0-->1.5 AST 242-->139 ALT 200-->167 UA showed > [address] head: 1. No acute intracranial pathology. 2. Mild to moderate bilateral ethmoid sinus disease. Assessment/plan #Alcohol detox * continue on general medicine floor * Ativan per CIWA * PO thiamine, folate, multivitamins * Seizure precautions * social work consulted, who provided the pt with information regarding the treatemnt options. #Hypertension * if BP remains persistantly elevated consider Clonidine 0.1mg BID with holding parameters #Nausea and vomiting * Most likely secondary to gastritis caused by alcohol use * PPI * Tigan PRN for nausea #Mild thrombocytopenia * Most likely related to alcohol use #Transaminitis * trended down * will need oupatient follow up * Hep panel negative * Likely due to alcohol induced. -advanced to regular diet -DVT prophylaxis with Alps and Lovenox -FC Problem List: 1. Alcohol abuse 2. Seizure Pain Ratin Pain Location: back Pain Goal: Pain 4 or less Pain Plan: tylenol prn Tomorrow's Labs & Rationales: cbc bep Aron Bond MD 10/02/17 1539: Attending MD Review Statement Attending Statement Attending MD Statement: examined this patient, discuss w/resident/PA/REGULATORY AFFAIRS SPEC, agreed w/resident/PA/REGULATORY AFFAIRS SPEC, discussed with family, reviewed EMR data (avail), discussed with nursing, discussed with case mgmt, amended to note Attending Assessment/Plan: The patient was seen and discussed with house staff, nursing, case management and family (mother). The patient had called his mother this morning with the impression that he was to be discharged. He is unclear who told him this (he states was a male). The patient was advised that we need to taper his Ativan further. Social service had seen him yesterday and the impression was that he did not wish OP program. His mother would favor inpatient program. She is visiting from [place]. Patient agreed to stay. Social service following up today.
[2017-10-03] VITALS (8 sets, daily range): BP systolic 110–146; BP diastolic 74–106
--- NOTE | 2017-10-03 07:40 | PN- Housestaff ---
Tanya Laird 10/03/17 0738: Subjective Follow-up For: alc detox Complaints: no complaints Subjective: He was comfortable this am. No new complaints. CIWA has been in between 0-2. He feels well. No chest pain, shortness of breath, palpitations. Review of Systems Constitutional: Reports: see HPI. Objective Last 24 Hrs of Vital Signs/I&O Vital Signs Date Time Temp Pulse Resp B/P B/P Pulse O2 O2 Flow FiO2 Mean Ox Delivery Rate 10/03 06 98.9 77 18 136/90 95 Room Air 10/03 0230 98.5 85 10 128/76 10/03 0226 98.5 85 20 128/76 97 Room Air 10/03 0030 98.8 78 18 132/74 10/02 2209 98.8 78 18 132/74 94 Room Air 10/02 1900 99.2 70 20 140/100 100 Room Air 10/02 1401 99.3 83 20 133/84 97 10/02 1031 90 20 142/98 99 10/02 0800 Room Air Intake & Output 10/03 0800 10/03 0000 10/02 1600 Intake Total 240 360 Output Total Balance 240 360 Intake, Oral 240 360 Physical Exam General Appearance: No Acute Distress Other Physical Findings: General Exam: AAOx3, No acute distress, Skin: No rashes, no breakdown;HEENT: PERRLA, EOMI;Neck: Supple, No JVD; No cervical lymphadenopathy;CVS: Reg Rate, Normal S1,S2, No MGR;Resp: Normal air entry, no ronchi/rales;Abdomen: Soft, No tenderness, Normal Bowel Sounds;Neuro: Normal Speech, Strength 5/5 b/l x 4 extremities, Sensation intact, CN III-XII NL, Reflexes 2+;Extremities: No cyanosis, no pedal edema Current Medications: Current Medications Sig/Ashlie Start time Last Medication Dose Route Stop Time Status Admin Enoxaparin Sodium 40 MG DAILY 10/01 09 AC 10/02 SC 0922 Folic Acid 1 MG DAILY 10/01 0900 AC 10/02 PO 0922 Lorazepam 2 MG Q8 10/02 1400 AC 10/03 PO 0550 Lorazepam 1.5 MG Q6 10/02 1200 DC PO Lorazepam 2 MG Q6 09/30 2359 DC 10/02 PO 0531 Lorazepam 0 Q1P PRN 09/305 AC IV Multivitamins 1 TAB DAILY 10/01 0900 AC 10/02 PO 0922 Omeprazole 40 MG DAILY AC 10/01 0700 AC 10/03 PO 0549 Patient Medication 1 ED ONE ONE 10/02 1630 DC Teaching ED 10/02 1631 Potassium Chloride 40 MEQ BID 10/01 0923 AC 10/02 PO 2144 Thiamine HCl 50 MG DAILY 10/01 0900 AC 10/02 PO 0922 Last 24 Hrs of Lab/Micky Results Last 24 Hrs of Labs/Mics: Laboratory Tests 10/03/17 0650: Sodium Pending, Potassium Pending, Chloride Pending, Carbon Dioxide Pending, Anion Gap Pending, BUN Pending, Creatinine Pending, BUN/Creatinine Ratio Pending Assessment/Plan Assessment: Mr Nuñez is a 27 year old gentleman with pmh h/o depression (not on any meds), alcohol dependence with no previous h/o alcohol withdrawal seizure or DT's, is brought in after a witnessed seizure episode at home. Labs at the time of admisison: WBC 7.8-->6.9 Hb 15-->14.4 Platlets 120-->91 ( likely alcohol related ) Na 140 K 3.4-->3.4 Cl 94 BUN 4, Cr 0.5 Mg 1.0-->1.5 AST 242-->139 ALT 200-->167 UA showed > [address] head: 1. No acute intracranial pathology. 2. Mild to moderate bilateral ethmoid sinus disease. Assessment/plan #Alcohol detox * continue on general medicine floor * Ativan per SPENCER, and scheduled ativan has been decreased to 1mg PO q8. * PO thiamine, folate, multivitamins * Seizure precautions * social work consulted, who provided the pt with information regarding the treatemnt options. #Hypertension * if BP remains persistantly elevated consider Clonidine 0.1mg BID with holding parameters #Nausea and vomiting * Most likely secondary to gastritis caused by alcohol use * PPI * Tigan PRN for nausea #Mild thrombocytopenia * Most likely related to alcohol use #Transaminitis * trended down * will need oupatient follow up * Hep panel negative * Likely due to alcohol induced. -advanced to regular diet -DVT prophylaxis with Alps and Lovenox -FC Problem List: 1. Alcohol abuse Pain Ratin Pain Location: tylenol Pain Goal: Pain 4 or less Pain Plan: tylenol prn Tomorrow's Labs & Rationales: cbc bep Aron Bond MD 10/03/17 1523: Attending MD Review Statement Attending Statement Attending MD Statement: examined this patient, discuss w/resident/PA/COMMANDING OFFICER MOTORIZED SQUAD, agreed w/resident/PA/COMMANDING OFFICER MOTORIZED SQUAD, discussed with family, reviewed EMR data (avail), discussed with nursing, discussed with case mgmt, amended to note Attending Assessment/Plan: The patient was seen and discussed with house staff. Clinically improve with low CIWA's. Will continue Ativan taper. developmental services worker to discuss with him plans for OP follow-up.
[2017-10-04 02:05] VITALS: BP 160/100
[2017-10-04 06:00] VITALS: BP 144/96
--- NOTE | 2017-10-04 07:34 | PN- Housestaff ---
Tanya Laird 10/04/17 0732: Subjective Follow-up For: Alcohol detox Complaints: no complaints Subjective: He feels well. No new complaints. Vitals stable overnight, CIWA scores between 0 -1 Review of Systems Constitutional: Reports: see HPI. Objective Last 24 Hrs of Vital Signs/I&O Vital Signs Date Time Temp Pulse Resp B/P B/P Pulse O2 O2 Flow FiO2 Mean Ox Delivery Rate 10/04 06 98.8 87 20 144/96 96 Room Air 10/04 0205 98.6 90 18 160/100 99 Room Air 10/03 2200 98.7 75 20 146/106 98 Room Air 10/03 1900 99.1 72 20 126/90 98 Room Air 10/03 1422 98.6 77 20 110/80 96 10/03 0800 Room Air Intake & Output 10/04 0800 10/04 0000 10/03 1600 Intake Total 200 480 Output Total Balance 200 480 Intake, Oral 200 480 Physical Exam General Appearance: No Acute Distress Other Physical Findings: General Exam: AAOx3, No acute distress, Skin: No rashes, no breakdown;HEENT: PERRLA, EOMI;Neck: Supple, No JVD; No cervical lymphadenopathy;CVS: Reg Rate, Normal S1,S2, No MGR;Resp: Normal air entry, no ronchi/rales;Abdomen: Soft, No tenderness, Normal Bowel Sounds;Neuro: Normal Speech, Strength 5/5 b/l x 4 extremities, Sensation intact, CN III-XII NL, Reflexes 2+;Extremities: No cyanosis, no pedal edema Current Medications: Current Medications Sig/Ashlie Start time Last Medication Dose Route Stop Time Status Admin Enoxaparin Sodium 40 MG DAILY 10/01 09 10/03 SC 0948 Folic Acid 1 MG DAILY 10/01 09 AC 10/03 PO 0947 Lorazepam 1 MG Q8 10/03 1400 AC 10/04 PO 0627 Lorazepam 2 MG Q8 10/02 1400 MD 10/03 PO 0550 Lorazepam 0 Q1P PRN 09/305 AC IV Multivitamins 1 TAB DAILY 10/01 09 AC 10/03 PO 0947 Omeprazole 40 MG DAILY AC 10/01 0700 AC 10/04 PO 0627 Patient Medication 1 ED ONE ONE 10/03 1230 DC 10/04 Teaching ED 06/20 1231 0724 Potassium Chloride 40 MEQ BID 10/01 0923 AC 10/03 PO 2153 Thiamine HCl 50 MG DAILY 10/01 0900 AC 10/03 PO 0947 Last 24 Hrs of Lab/Micky Results Last 24 Hrs of Labs/Mics: Laboratory Tests 10/04/17 0640: CBC w Diff Pending, WBC Pending, RBC Pending, Hgb Pending, Hct Pending, MCV Pending, MCH Pending, MCHC Pending, RDW Pending, Plt Count Pending, MPV Pending Assessment/Plan Assessment: Mr Nuñez is a 27 year old gentleman with pmh h/o depression (not on any meds), alcohol dependence with no previous h/o alcohol withdrawal seizure or DT's, is brought in after a witnessed seizure episode at home. Assessment/plan #Alcohol detox * continue on general medicine floor * Ativan per CIWA * PO thiamine, folate, multivitamins * Seizure precautions * social work consulted, who provided the pt with information regarding the treatemnt options. He is not inclined to pursue any active treatment at this time. Plans to call social work with questions. * Ativan 1mg po bid, w/ a prescription to take last two doses at 6 PM on 10/04, and 10/05. #Hypertension * if BP remains persistantly elevated consider Clonidine 0.1mg BID with holding parameters * Stable at this time. #Nausea and vomiting * Most likely secondary to gastritis caused by alcohol use * PPI * Tigan PRN for nausea #Mild thrombocytopenia * Most likely related to alcohol use * Improved #Transaminitis * trended down * will need oupatient follow up * Hep panel negative * Likely due to alcohol induced. * Encouraged him to follow up with his PCP regarding his elevaed liver enzymes. -advanced to regular diet -DVT prophylaxis with Alps and Lovenox -FC Problem List: 1. Alcohol abuse 2. Seizure Pain Ratin Pain Location: pain Pain Goal: Pain 4 or less Pain Plan: tylenol prn Tomorrow's Labs & Rationales: no labs Aron Bond MD 10/04/17 1402: Attending Review Statement Attending Statement Attending Statement: examined this patient, discuss w/resident/PA/STONEMASON SUPERVISOR, agreed w/resident/PA/STONEMASON SUPERVISOR, reviewed EMR data (avail), discussed with nursing, discussed with case mgmt Attending Assessment/Plan: The patient was seen and discussed with house staff, case management, nursing, and social service liaison. The patient is reluctant to consider IOP or more intense program. Will follow-up with PCP next week regarding abnormal LFT's.
[2017-10-04 08:21] LABS: ABSOLUTE BASOPHIL COUNT 0.1 /CUMM (0.0-0.2); ABSOLUTE EOSINOPHIL COUNT 0.2 /CUMM (0.0-0.7); ABSOLUTE GRANULOCYTE CT 5.8 /CUMM (1.4-6.5); ABSOLUTE LYMPH COUNT 1.1 /CUMM (1.2-3.4); ABSOLUTE MONOCYTE COUNT 1.7 /CUMM (0.10-0.60); BASOPHIL % 0.8 % (0.0-2.0); EOSINOPHIL % 2.1 % (0-5); GRANULOCYTE % 65.8 % (42.2-75.2); HEMATOCRIT 43.9 % (42-52); MEAN CORPUSCULAR HGB 32.2 PG (27.0-31.0); MEAN CORPUSCULAR HGB CONC 34.1 G/DL (33.0-37.0); MEAN CORPUSCULAR VOLUME 94.3 FL (80.0-94.0); MEAN PLATELET VOLUME 7.9 FL (7.4-10.4); PLATELET COUNT 131 /CUMM (130-400); RBC DISTRIBUTION WIDTH 13.5 % (11.5-14.5); RED BLOOD CELL CT 4.65 /CUMM (4.70-6.10); WHITE BLOOD CELL COUNT 8.8 /CUMM (4.8-10.8)
[2017-10-04] MEDS ORDERED: FOLIC ACID1 M1 PO ×2 (08:53→10:55)
[2017-10-04] MEDS ORDERED: THIAMINE HCL100 M1 PO ×2 (08:53→10:55)
[2017-10-04] MEDS ORDERED: LORAZEPAM1 M1 PO ×2 (08:56→09:40)
--- NOTE | 2017-10-04 09:02 | Patient Discharge Instructions ---
Discharge Instructions General Discharge Information You were seen/treated for: Alochol detox Alcohol withdrawl seizures Watch for these problems: - seizures - chest pain, shortness of breath - confusion, altered mental status Special Instructions: - Please see your PCP within a week, and discuss with him about following up on abnormal liver chemistries. Acute Coronary Syndrome Inclusion Criteria At DC or during hospital stay patient has or had the following: ACS DIAGNOSIS No Discharge Core Measures Meds if any: Prescribed or Continued at Discharge Meds if any: NOT Prescribed or Continued at Discharge Congestive Heart Failure Inclusion Criteria At DC or during hospital stay patient has or had the following: CHF DIAGNOSIS No Discharge Core Measures Meds if any: Prescribed or Continued at Discharge Meds if any: NOT Prescribed or Continued at Discharge Cerebrovascular accident Inclusion Criteria At DC or during hospital stay patient has or had the following: CVA/TIA Diagnosis No Discharge Core Measures Meds if any: Prescribed or Continued at Discharge Meds if any: NOT Prescribed or Continued at Discharge Venous thromboembolism Inclusion Criteria VTE Diagnosis No VTE Type NONE VTE Confirmed by (Test) NONE Discharge Core Measures - Per Current guidelines, there needs to be overlap - treatment for the first 5 days of Warfarin therapy. - If discharged on Warfarin prior to 5 days of - overlap therapy, the patient will need to be - assessed for post discharge needs including - *Post discharge parental anticoagulation - *Warfarin and/or parental anticoagulation education - *Follow up date to check INR post discharge At least 5 days overlap therapy as Inpatient No Meds if any: Prescribed or Continued at Discharge Note: Overlap Therapy is Warfarin and Anticoagulant Meds if any: NOT Prescribed or Continued at Discharge
[2017-10-04 09:38] VITALS: BP 130/80
--- NOTE | 2017-10-04 11:40 | Discharge Summary ---
Visit Information Visit Dates Admission Date: 09/30/17 Discharge Date: 10/05/17 Hospital Course Course Attending Physician: Aron Bond MD Primary Care Physician: Steffen Amaro DO Hospital Course: Mr Nuñez is a 27 year old man w/ a PMHx of alcohol use for the last few years, and was admitted to the hospital w/ a chief concern of witnessed seizures, which was likely are alcohol withdrawl seizures. Etiology was unclear. Last drink was 2 days prior to presentation. At the time of admission-temperature 99.8, pulse rate 80, blood pressure 127/74, respiration 18. Pulse ox 94% on room air. Pertinent lab findings: WBC 7.8, hemoglobin 15.0, platelets 120. Sodium 138, potassium 3.4, chloride 97, BUN 4, creatinine 0.5. Liver chemistries-AST 242-->139, ALT 220-->167, total bilirubin 1.1-->1.4, alkaline phosphatase 117-->91. Albumin 4.3, INR 1.23. Urinalysis revealed urine protein greater than 300. U tox negative for opiates, amphetamine, benzodiazepine, cocaine. Tested mildly positive for serum alcohol 25. Hepatitis panel-nonreactive. Chest [id number]. CT head-no acute intracranial pathology, mild to moderate bilateral ethmoid sinus disease. Blood cultures remain negative. He was admitted to general medicine service for the management of possible alcohol withdrawal seizures, and alcohol detox. CIWA score remain less than 10, and did not require any intravenous lorazepam. He was continued on Ativan taper , and discharge the patient on 2 tablets of 1 mg Ativan at the time of discharge. vocational services specialist were consulted for arranging postdischarge planning, but since Baldo did not decide upon particular form of treatment plan; it was deferred for later. Vitals remained stable, but he had a few episodes of hypertension for which he received p.o. doses of clonidine; and he did not have any seizures while he was admitted. Incidentally, he was found to have elevated liver chemistries which were largely attributed alcohol liver disease. He had very low discriminant function. He was recommended to follow-up with his primary care provider post discharge as an outpatient. Counseled about maintaining sobriety, which would reverse his abnormal liver chemistries. Allergies: Coded Allergies: NO KNOWN ALLERGIES (07/18/13) Pertinent Lab Results: RAD - XRY-CHEST XRAY, TWO VIEWS 09/30/17-1816 Unremarkable examination. CAT - CT HEAD WO IV CONTRAST 09/30/17 1. No acute intracranial pathology. 2. Mild to moderate bilateral ethmoid sinus disease. Disposition Summary Disposition Principal Diagnosis: Alcohol withdrawal Additional Diagnosis: High blood pressure Discharge Disposition: home or self care Discharge Instructions General Discharge Information Code Status: Full Code Patient's Diet: as tolerated Patient's Activity: as tolerated. Follow-Up Instructions/Appts: -Please see your primary care provider within a week of discharge -Please take your medications as prescribed. -Please follow up with your PCP regarding abnormal liver enzymes Medications at Discharge Discharge Medications: Start taking the following new medications: Lorazepam (Lorazepam) 1 MG TABLET 1 Tablet ORAL TWICE DAILY Qty = 2 No Refills Instructions: 1 tab 10/04 PM, 1 tab on 10/05 AM. then AM. Thiamine HCl (Thiamine HCl) 100 MG TABLET 1 Tablet ORAL DAILY Qty = 30 No Refills Instructions: . Comments: Last Taken:10/04/17 Time: 9:00 AM Folic Acid (Folic Acid) 1 MG TABLET 1 Milligram ORAL DAILY Qty = 30 No Refills Instructions: . Comments: Last Taken:10/04/17 Time: 9:00 AM Copies To: Steffen Amaro DO, MD Review Statement Documenting Attending: Aron Bond MD Other Findings: The patient was seen and discussed with house staff. To be discharged with 2 remaining doses of Ativan. The patient declined IOP or long term EtOH program. He stated he wished 1:1 counseling. Social service advised him to call his insurance and see which providers are covered. Will need to see PCP to follow-up LFT's and encourage counseling.
== END 2017-10-04 11:50 | DRG 897 ==
LOC: ERH 17:23 → 2NA 20:58 → ERHI 20:58 → ENRESERV 21:33 → ENTRNSPT 21:48 → EDTRNSPT 21:56 → EDTRNSPTSTS 21:56 → 2NA 22:08 → CMPTRNSPT 22:26 → 2NA 10-01 08:13 → ENPENDDIS 10-04 11:17 → 2NA 10-04 11:50
PROVIDERS: Emergency Medicine; Internal Medicine Endocrinology, Diabetes & Metabolism; Student in an Organized Health Care Education/Training Program
DX: F10.239 Alcohol dependence with withdrawal, unspecified (principal); E87.2 Acidosis; K70.10 Alcoholic hepatitis without ascites; F17.210 Nicotine dependence, cigarettes, uncomplicated; D69.6 Thrombocytopenia, unspecified; E87.6 Hypokalemia; E83.42 Hypomagnesemia; W18.30XA Fall on same level, unspecified, initial encounter; Y92.009 Unspecified place in unspecified non-institutional (private) residence as the place of occurrence of the external cause; K29.20 Alcoholic gastritis without bleeding
CPT/HCPCS: 2NAP; 36415; 36592; 71046; 80307; 81001; 82436; 87040; 87070; 93005; 93010; G0480; J1650; J2001; J3490